=== PATIENT | male | born 1945 | race Caucasian/White ===

== ENCOUNTER 2017-01-17 13:19 | Outpatient (CLI) | payer OTHER ==
[2017-01-17 14:09] LABS: Blood Urea Nitrogen 15 mg/dL (9-20)
--- NOTE | 2017-01-18 09:38 | Magnetic Resonance Report ---
MRI BRAIN WITH/WITHOUT CONTRAST: History: Asymmetric hearing loss. Technique: Multiple T1 and T2 weighted images were obtained in multiple planes. Axial diffusion and gradient imaging was performed. Post contrast T1 images in two planes were obtained following IV gadolinium. Findings: Mild cortical volume loss is noted. The brain parenchyma signal intensity and its hunter-white interface are normal on all sequences. No abnormal parenchymal signal. No diffusion restriction, hemorrhage, mass effect or extra-axial fluid collection. Ventricular size is normal and symmetric. The basal cisterns are clear. The brainstem and cerebellar hemispheres are within normal limits. The fourth ventricle is midline. Thin collimation imaging through the internal auditory canals demonstrate normal appearing cranial 7/8 nerve complexes bilaterally. No acoustic neuroma or cerebellopontine angle mass is appreciated. The paranasal sinuses and mastoid air cells are well aerated. Normal flow voids are identified in the appropriate vessels at the [place]. No abnormal enhancement is identified following IV gadolinium. Impression: Mild cortical volume loss which appears appropriate for this persons age. Otherwise, unremarkable MRI of the brain. Internal auditory canals are unremarkable. No clear explanation for asymmetric hearing loss.
== END 2017-01-17 13:20 | disposition home or self-care (01) ==
LOC: MRI 13:19
PROVIDERS: ATTEND Internal Medicine
DX: H91.8X3 Other specified hearing loss, bilateral (principal); E78.5 Hyperlipidemia, unspecified
CPT/HCPCS: 36415; 70553; 82565; 84520; A9577